=== PATIENT | female | born 1940 | race Caucasian/White ===

== ENCOUNTER → 2022-10-10 11:33 | Outpatient (CLI) | payer MEDICARE, OTHER, SELFPAY ==
--- NOTE | 2022-10-10 | DI.ECHO.S_ITS ---
[facility] +---------+ : : [address] : [place] : : : : [id number] : : : : Phone: [phone]---------+ Echocardiogram Report + + :Name: RAISA CLAY Study Date: 10/10/2022 Height: 62 in : :[facility] ReadingLocation: Weight: 132 lb : : Gender: Female BSA: 1.6 m2 : :: 1940 Age: 82 yrs BP: 111/82 mmHg: :Reason For Study: LOCALIZED EDEMA : :Ordering Physician: RUSSELL, : :BHARATI Performed By: Celina Corea : :Referring: BHARATI WELLS : + + Interpretation Summary The ejection fraction is estimated to be 55-60%. Diastolic parameters suggest probable normal left ventricular diastolic function and normal filling pressures. The right ventricle is normal in size and function. Both atria are normal in size. No significant valvular abnormality. Procedure: A two-dimensional transthoracic echocardiogram with color flow and Doppler was performed. The study quality was technically adequate. There is no prior echocardiogram noted for this patient. The patient was in sinus bradycardia with heart rates between 50-53 bpm during the exam. Left Ventricle: The left ventricle is normal in size and wall thickness. The ejection fraction is estimated to be 55-60%. Diastolic parameters suggest probable normal left ventricular diastolic function and normal filling pressures. Right Ventricle: The right ventricle is normal in size and function. Atria: The left atrial size is normal. Both atria are normal in size. Right atrial size is normal. There is no Doppler evidence for an interatrial shunt. Mitral Valve: The mitral valve is normal in structure and function. There is trace mitral regurgitation. Aortic Valve: The aortic valve is trileaflet. The aortic valve opens well. There is no aortic valve stenosis. There is mild aortic regurgitation. Tricuspid Valve: The tricuspid valve is normal in structure and function. There is trace tricuspid regurgitation. Pulmonic Valve: The pulmonic valve is not well visualized. There is no pulmonic valvular regurgitation. Great Vessels: The aortic root is normal size. The dimensions of the ascending aorta are normal. The IVC is of normal diameter and collapses greater than 50% with a sniff. This suggests a low right atrial pressure of 3 mm Hg. Pericardium/ Pleura There is no pericardial effusion. There is an anterior echo-free space consistent with a fat pad. There is no pleural effusion. MMode/2D Measurements & Calculations LVIDd: 4.7 cm LVOT diam: 2.0 cm LVIDs: 3.1 cm Ao root diam: 3.2 cm FS: 34.7 % asc Aorta Diam: 3.4 cm IVSd: 0.69 cm Ao Arch Diam (Prox Trans): 2.4 cm LVPWd: 0.63 cm LV mendoza. diameter/BSA (cm/m^2): 2.9 LV sys. diameter/BSA (cm/m^2): 1.9 LA A2 area: 14.9 cm2 RA long axis: 4.1 cm LA A4 area: 13.4 cm2 RA area: 12.8 cm2 LA length (vol): 4.8 cm RA vol: 33.6 ml LA vol: 35.1 ml RA : 21.0 ml/m2 LA vol index: 21.9 ml/m2 IVC diam: 1.2 cm RVD1 (basal): 2.7 cm RVD2 (mid): 2.1 cm TAPSE: 1.9 cm Doppler Measurements & Calculations Ao V2 max: 133.3 cm/sec LVOT Max Gio: 109.1 cm/sec Ao V2 mean: 89.9 cm/sec LV V1 max P.8 mmHg Ao max P.1 mmHg LV V1 VTI: 26.0 cm Ao mean P.6 mmHg PEREZ(I,D): 2.6 cm2 Ao V2 VTI: 30.8 cm PEREZ(V,D): 2.5 cm2 sev ratio: 0.85 PEREZ indexed to BSA (cm^2/m^2): 1.6 AI P1/2t: 1213 msec AI dec slope: 79.3 cm/sec2 MV E max gio: 71.3 cm/sec PA V2 max: 73.1 cm/sec MV A max gio: 85.2 cm/sec PA V2 mean: 50.5 cm/sec MV E/A: 0.84 PA mean P.2 mmHg Med Peak E' Gio: 5.8 cm/sec PA pr(Accel): 7.1 mmHg E/E' med: 12.4 Lat Peak E' Gio: 5.8 cm/sec E/E' lat: 12.4 E/e' average: 12.4 MV dec time: 0.21 sec SV(LVOT): 78.8 ml Reading Physician:PM
== END ==
PROVIDERS: PCP Physician Assistant Medical; Referring Provider Physician Assistant Medical; Visit Provider Physician Assistant Medical
DX: I35.1 Nonrheumatic aortic (valve) insufficiency (principal); R60.0 Localized edema
CPT/HCPCS: 93306